=== PATIENT | male | born 1970 | race Caucasian/White ===

== ENCOUNTER 2021-05-03 20:37 | Emergency (ER) | payer OTHER ==
[2021-05-03 20:48] VITALS: BP 156/90; PULSE 95; RESP 18; TEMP 97.7
[2021-05-03] MEDS ORDERED: DIAZEPAM 5 MG/ML 2 ML INJ IM STA (21:34)
[2021-05-03] MEDS ORDERED: KETOROLAC 15 MG/ML 1 ML VIAL IM STA (21:34)
--- NOTE | 2021-05-03 21:53 | XR ---
EXAMINATION TYPE: XR femur RT DATE OF EXAM: 05/03/2021 COMPARISON: NONE HISTORY: Fall. Pain. TECHNIQUE: 4 views FINDINGS: The hip joint appears intact. Femur appears intact. Knee joint appears anatomic. I see no s ign of knee joint effusion. IMPRESSION: Normal right femur exam.
--- NOTE | 2021-05-03 22:26 | ED ---
Lower Extremity Injury HPI - General Chief Complaint: Extremity Injury, Lower Stated Complaint: R leg injury Time Seen by Provider: 05/03/21 21:12 Source: patient Mode of arrival: ambulatory Limitations: no limitations - History of Present Illness Initial Comments: 51-year-old male presents emergency Department with chief complaint of right leg pain. Patient reports he fell on the side of the pool hitting the lower leg almost to the pain is located in his right eye. Patient reports most of the pain is located in the mid thigh region feels like his muscle is spasming. States pain is exacerbated with region is palpated but denies any ecchymosis or erythema to the region. Denies any paresthesias or weakness in the lower extremity. Denies taking medication to the symptoms. Pain is sharp 5/10. - Related Data Allergies Allergy/AdvReac Type Severity Reaction Status Date / Time No Known Allergies Allergy Verified 05/03/21 20:48 Review of Systems ROS Statement: Those systems with pertinent positive or pertinent negative responses have been documented in the HPI. ROS Other: All systems not noted in ROS Statement are negative. Past Medical History Past Medical History: No Reported History History of Any Multi-Drug Resistant Organisms: None Reported Past Surgical History: No Surgical Hx Reported Past Psychological History: No Psychological Hx Reported Smoking Status: Current every day smoker Past Alcohol Use History: Occasional Past Drug Use History: None Reported General Exam Limitations: no limitations General appearance: alert, in no apparent distress Head exam: Present: atraumatic, normocephalic, normal inspection Eye exam: Present: normal appearance, PERRL, EOMI Pupils: Present: normal accommodation ENT exam: Present: normal exam, normal oropharynx, mucous membranes moist Neck exam: Present: normal inspection, full ROM. Absent: tenderness, lymphadenopathy Respiratory exam: Present: normal lung sounds bilaterally. Absent: respiratory distress Cardiovascular Exam: Present: regular rate, normal rhythm, normal heart sounds. Absent: systolic murmur Extremities exam: Present: normal inspection (Mild abrasion lower leg. No ecchymosis or erythema), full ROM (Full range of motion of the right knee), tenderness (Tenderness over the anterior aspect the right eye), normal capillary refill, other (Palpable DP and PT bilaterally.). Absent: pedal edema, joint swelling, calf tenderness Back exam: Present: normal inspection, full ROM Neurological exam: Present: alert, oriented X3 Psychiatric exam: Present: normal affect, normal mood Skin exam: Present: warm, dry, intact, normal color Course Vital Signs 05/03/21 20:43 Temperature 97.7 F Pulse Rate 95 Respiratory 18 Rate Blood Pressure 156/90 O2 Sat by Pulse 97 Oximetry Medical Decision Making - Medical Decision Making 51-year-old male presents emergency Department with a chief complaint of a fall and right leg pain. On Physical examination, he has some spasm in the quadriceps muscles of the right leg. X-rays are unremarkable at her right femur. Patient was given Toradol and some Valium which helped with the pain and the spasms. I advised him to continue with conservative management. I advised him to follow with administration specialist. Strict return parameters were thoroughly discussed the patient is an ascending agreeable. Case discussed with physician. Disposition Clinical Impression: Leg injury, Muscle contusion Disposition: HOME SELF-CARE Condition: Stable Instructions (If sedation given, give patient instructions): Contusion in Adults (ED) Additional Instructions: Please return to the Emergency Department if symptoms worsen or any other concerns. Is patient prescribed a controlled substance at d/c from ED?: No Referrals: None,Stated [Primary Care Provider] - 1-2 days Kevin Cintron DO [Doctor of Osteopathic Medicine] - 1-2 days Time of Disposition: 22:26
== END 2021-05-03 22:42 | disposition home or self-care (01) ==
LOC: EC 20:37
DX: S80.11XA Contusion of right lower leg, initial encounter (principal); F17.200 Nicotine dependence, unspecified, uncomplicated; W18.39XA Other fall on same level, initial encounter
CPT/HCPCS: 99284; 96372 ×2; 73552; J3360; J1885

== ENCOUNTER → 2024-04-26 | Outpatient (CLI) | payer OTHER ==
--- NOTE | 2024-04-26 13:36 | XR ---
EXAMINATION TYPE: XR abdomen 1V DATE OF EXAM: 04/26/2024 1:24 PM CLINICAL INDICATION:Male, 54 years old with history of FEVER; COMPARISON: None. TECHNIQUE: One radiographic view of the abdomen was obtained. FINDINGS: The bowel gas pattern is nonspecific without dilated loops of small or large bowel. . Fecal material and gas are demonstrated throughout the colon and rectum. There is no evidence for organomegaly or pneumoperitoneum. The osseous structures are intact. No ab normal calcifications are present. IMPRESSION: Nonspecific bowel gas pattern without radiographic evidence for acute process.
--- NOTE | 2024-04-26 13:38 | XR ---
EXAMINATION TYPE: XR chest 2V DATE OF EXAM: 04/26/2024 1:24 PM CLINICAL INDICATION:Male, 54 years old with history of FEVER; [facility] COMPARISON: None TECHNIQUE: XR chest 2V Frontal view of the chest. FINDINGS: Lungs/Pleura: Lung airspace opacities. There is no evidence of pleural effusion, focal consolidation, or pneumothorax. Pulmonary vascularity: Unremarkable. Heart/mediastinum: Cardiomediastinal silhouette is unremarkable. Musculoskeletal: No acute osseous pathology. IMPRESSION: Right upper lung airspace disease correlate for pneumonia.
[2024-04-26 18:24] LABS: HCT 45.1 % (39.6-50.0); HGB 15.4 g/dL (13.0-17.0); MCH 31.7 pg (27.0-32.0); MCHC 34.1 g/dL (32.0-37.0); MCV 92.8 FL (80.0-97.0); Mean Platelet Volume 10.6 FL (9.5-12.2); NRBC Per 100 WBC 0 X 10*3/uL (0.00-0.01); Platelet Count 261 X 10*3/uL (140-440); RBC 4.86 X 10*6/uL (4.40-5.60); RDW 12.6 % (11.5-14.5); WBC 16.26 X 10*3/uL (4.50-10.00)
[2024-04-26 18:31] LABS: ALT 33 U/L (10-49); AST 36 U/L (14-35); Albumin 4.3 g/dL (3.8-4.9); Albumin/Globulin Ratio 1.87 Ratio (1.60-3.17); Alkaline Phosphatase 94 U/L (41-126); Blood Urea Nitrogen 13.2 mg/dL (9.0-27.0); Calcium 9.1 mg/dL (8.7-10.3); Chloride 99 mmol/L (96-109); Globulin 2.3 g/dL (1.6-3.3); Glucose 115 mg/dL (70-110); Potassium 3.7 mmol/L (3.5-5.5); Sodium 132 mmol/L (135-145); Total Bilirubin 1.5 mg/dL (0.3-1.2); Total Protein 6.6 g/dL (6.2-8.2)
[2024-04-26 18:46] LABS: Basophils # (A) 0.03 X 10*3/uL (0.00-0.10); Basophils % (A) 0.2 %; Eosinophils # (A) 0.01 X 10*3/uL (0.04-0.35); Eosinophils % (A) 0.1 %; Lymphocytes # (A) 0.79 X 10*3/uL (0.90-5.00); Lymphocytes % (A) 4.9 %; Monocytes # (A) 1.64 X 10*3/uL (0.20-1.00); Monocytes % (A) 10.1 %; Neutrophils % (A) 84.1 %; RBC Morphology Normal (Normal)
== END | disposition home or self-care (01) ==
LOC: RADXRMAIN 13:04
PROVIDERS: ATTEND Physician Assistant
DX: J98.4 Other disorders of lung (principal); R50.9 Fever, unspecified
CPT/HCPCS: 36415; 71046; 74018; 80053; 85025

== ENCOUNTER 2024-05-01 18:56 | Emergency (ER) | payer OTHER ==
--- NOTE | 2024-06-11 10:47 | XR ---
Patient Cristobal Underwood ID [id number] Order # EXAMINATION TYPE: XR forearm RT DATE OF EXAM: 05/01/2024 COMPARISON: No comparison available on downtime PACS. HISTORY: Cain right forearm TECHNIQUE: 2 view right forearm FINDINGS: No acute osseous abnormality is evident. Joint spaces appear preserved Soft tissues appear normal. No radiopaque foreign bodies evident. No radiolucent foreign bodies evide nt. IMPRESSION: 1. No foreign bodies identified
== END 2024-05-01 22:28 | disposition home or self-care (01) ==
LOC: EC 18:56
DX: T15.01XA Foreign body in cornea, right eye, initial encounter (principal)
CPT/HCPCS: 99283